=== PATIENT | male | born 1950 | race Caucasian/White ===

== ENCOUNTER → 2019-11-08 11:22 | Outpatient (BNVA) | payer MEDICARE, SELFPAY | PROVIDERS: Family Provider Family Medicine; PCP Family Medicine; Visit Provider Family Medicine | DX: R50.9 Fever, unspecified (principal); L03.213 Periorbital cellulitis; E11.9 Type 2 diabetes mellitus without complications | CPT/HCPCS: 36416; 82962; 85025; 87081; 87880 ==

== ENCOUNTER → 2019-11-22 10:12 | Outpatient (BNVA) | payer MEDICARE, SELFPAY | PROVIDERS: Family Provider Family Medicine; PCP Family Medicine; Visit Provider Family Medicine | DX: R50.9 Fever, unspecified (principal); L03.213 Periorbital cellulitis; R73.9 Hyperglycemia, unspecified; E11.9 Type 2 diabetes mellitus without complications | CPT/HCPCS: 83036 ==

== ENCOUNTER → 2020-05-23 16:26 | Outpatient (BNVA) | payer MEDICARE, SELFPAY | PROVIDERS: Family Provider Family Medicine; PCP Family Medicine; Visit Provider Nurse Practitioner Family | DX: R35.0 Frequency of micturition (principal) | CPT/HCPCS: 81000 ==